=== PATIENT | female | born 1995 | race Caucasian/White ===

== ENCOUNTER 2024-06-02 17:40 | Emergency (ER) | payer OTHER ==
[2024-06-02] MEDS: diphenhydrAMINE 50 MG Cap PO ONE (17:56)
== END 2024-06-02 18:30 | disposition home or self-care (01) ==
LOC: LB.ED 17:40
DX: T78.1XXA Other adverse food reactions, not elsewhere classified, initial encounter (principal); Z88.2 Allergy status to sulfonamides
CPT/HCPCS: 99283; A9270